=== PATIENT | male | born 1930 | race Caucasian/White ===

== ENCOUNTER 2018-05-02 20:21 | Inpatient (IN) | payer OTHER ==
[~2018-05-02] VITALS: Ht 182.9 cm; Wt 77.1 kg
[2018-05-02 21:39] LABS: HEMATOCRIT 35.8 % (38.0-50.0); HEMOGLOBIN 12.1 G/DL (12.5-16.6); MCH 31.3 PG (29.0-34.0); MCHC 33.8 G/DL (30.0-36.0); MCV 92.7 FL (86-99); PLATELET COUNT 206 K/uL (156-360); RBC DIS.WIDTH-CV 12.4 % (11.8-14.6); RBC DIS.WIDTH-SD 42.2 % (39-53); RED BLOOD COUNT 3.86 M/uL (4.00-5.50); WHITE BLOOD COUNT 7.2 K/uL (4.1-10.2)
[2018-05-02 21:48] LABS: PTT 25.1 SEC (25-37)
[2018-05-02 21:54] LABS: ALBUMIN 3.8 g/dL (3.2-4.8); CHLORIDE 103 mEq/L (99-109); POTASSIUM 3.8 mEq/L (3.7-5.4); SODIUM 138 mEq/L (136-147)
[2018-05-02 21:56] LABS: GLUCOSE 55 mg/dL (70-99); TOTAL PROTEIN 6.8 g/dL (6.4-8.3)
[2018-05-02 21:58] LABS: TOTAL BILIRUBIN 0.2 mg/dL (0.0-1.0)
[2018-05-02 22:00] LABS: ALKALINE PHOSPHATASE 64 IU/L (3-129); CREATININE 1.1 mg/dL (0.6-1.3); GFR ESTIMATE (CALCULATED) > 59 mL/min/ (58.99-99999)
[2018-05-02 22:01] LABS: UREA NITROGEN (BUN) 23 mg/dL (9-23)
[2018-05-02 22:02] LABS: AST (GOT) 23 IU/L (2-34)
[2018-05-02 22:03] LABS: ALT (GPT) 13 IU/L (3-49)
[2018-05-02] MEDS ORDERED: HUMALOG100 UNIT/1 SC (23:31)
[2018-05-02] MEDS ORDERED: LEVOTHYROXINE50 MCG PO (23:31)
[2018-05-02] MEDS ORDERED: LANTUS 10100 UNITS/ SC (23:31)
[2018-05-02] MEDS ORDERED: METAMUCIL POWD822 G1 PO (23:42)
[2018-05-03 00:29] LABS: MAGNESIUM 2.4 mg/dL (1.3-2.7)
[2018-05-03 00:30] LABS: HEMATOCRIT 34.7 % (38.0-50.0); HEMOGLOBIN 11.8 G/DL (12.5-16.6); MCH 31.3 PG (29.0-34.0); PLATELET COUNT 203 K/uL (156-360); RBC DIS.WIDTH-CV 12.2 % (11.8-14.6); RBC DIS.WIDTH-SD 41.6 % (39-53); RED BLOOD COUNT 3.77 M/uL (4.00-5.50); WHITE BLOOD COUNT 11.1 K/uL (4.1-10.2)
[2018-05-03 00:33] LABS: SERUM ETHYL ALCOHOL < 10 mg/dL
[2018-05-03 00:36] LABS: ACETAMINOPHEN (TYLENOL) < 10 mcg/mL (10-30); CREATINE KINASE 155 IU/L (1-294); SALICYLATE < 5.0 MG/DL (15-30)
[2018-05-03 00:36] LABS: ALBUMIN 3.6 g/dL (3.2-4.8); CHLORIDE 103 mEq/L (99-109); POTASSIUM 3.8 mEq/L (3.7-5.4); SODIUM 136 mEq/L (136-147)
[2018-05-03 00:38] LABS: TOTAL PROTEIN 6.4 g/dL (6.4-8.3)
[2018-05-03 00:41] LABS: GLUCOSE 87 mg/dL (70-99); TOTAL BILIRUBIN 0.3 mg/dL (0.0-1.0)
[2018-05-03 00:42] LABS: ALKALINE PHOSPHATASE 59 IU/L (3-129); CREATININE 0.9 mg/dL (0.6-1.3); GFR ESTIMATE (CALCULATED) > 59 mL/min/ (58.99-99999)
[2018-05-03 00:43] LABS: UREA NITROGEN (BUN) 19 mg/dL (9-23)
[2018-05-03 00:44] LABS: AST (GOT) 22 IU/L (2-34)
[2018-05-03 00:45] LABS: ALT (GPT) 13 IU/L (3-49)
[2018-05-03 01:10] VITALS: BP 163/74
[2018-05-03 01:29] LABS: APPEARANCE CLEAR ((CLEAR)); BILIRUBIN NEGATIVE; BLOOD NEGATIVE; COLOR YELLOW ((YELLOW)); GLUCOSE (STRIP) NEGATIVE; KETONES 5; LEUKOCYTES NEGATIVE; NITRITE NEGATIVE; PROTEIN (STRIP) NEGATIVE; SPECIFIC GRAVITY 1.011 (1.000-1.030); UCUL ADDED? NO; UROBILINOGEN 0.2 MG/DL (0.2-1.0)
[2018-05-03 04:31] VITALS: BP 115/54
[2018-05-03 08:00] VITALS: BP 104/57
[2018-05-03 08:49] LABS: THYROTROPIN (TSH) 7.5 MIU/L (0.4-5.5)
[2018-05-03 11:00] VITALS: BP 107/60
[2018-05-03 12:00] LABS: BENZODIAZEPINES, URINE SCREEN Negative (200 ng/mL)
[2018-05-03 17:00] VITALS: BP 117/70
[2018-05-03 20:49] VITALS: BP 120/70
[2018-05-04 01:04] VITALS: BP 117/60
[2018-05-04 06:02] VITALS: BP 118/57
[2018-05-04 06:30] LABS: HEMATOCRIT 35.3 % (38.0-50.0); HEMOGLOBIN 11.6 G/DL (12.5-16.6); MCH 30.9 PG (29.0-34.0); MCHC 32.9 G/DL (30.0-36.0); MCV 93.9 FL (86-99); PLATELET COUNT 166 K/uL (156-360); RBC DIS.WIDTH-CV 12.4 % (11.8-14.6); RBC DIS.WIDTH-SD 43.1 % (39-53); RED BLOOD COUNT 3.76 M/uL (4.00-5.50); WHITE BLOOD COUNT 7.3 K/uL (4.1-10.2)
[2018-05-04 06:54] LABS: CHLORIDE 106 MEQ/L (99-109); CREATININE 0.9 MG/DL (0.6-1.3); GFR ESTIMATE (CALCULATED) > 59 mL/min/ (58.99-99999); POTASSIUM 4.3 MEQ/L (3.7-5.4); SODIUM 137 MEQ/L (136-147); UREA NITROGEN (BUN) 13 mg/dL (9-23)
[2018-05-04 07:06] LABS: GLUCOSE 157 mg/dL (70-99)
[2018-05-04 07:50] VITALS: BP 120/65
[2018-05-04 11:17] VITALS: BP 134/61
== END 2018-05-04 16:42 | disposition home or self-care (01) | DRG 101 ==
LOC: EME → EDBD 20:21 → EDOF 23:44 → 3EAST 23:44 → ENRESERV 23:47 → 3EAST 05-03 00:44
PROVIDERS: Emergency Medicine; Internal Medicine
DX: R56.9 Unspecified convulsions (principal); E11.649 Type 2 diabetes mellitus with hypoglycemia without coma; E03.9 Hypothyroidism, unspecified; Z79.4 Long term (current) use of insulin
CPT/HCPCS: 70450; 71045; 80048; 80053; 80306 90; 81003; 82550; 82948; 83605; 83735; 84439; 84443; 85027; 85610; 85730; 93005; 95819; 99281; 99285; G0480; J1650; J1815; J7030